=== PATIENT | male | born 1945 | race Caucasian/White ===

== ENCOUNTER 2018-01-11 18:50 | Emergency (ER) | payer SELFPAY ==
[~2018-01-11] VITALS: Ht 180.3 cm; Wt 86.2 kg
[2018-01-11 18:50] VITALS: BP_SYST 159
[2018-01-11 20:07] VITALS: BP_SYST 142
== END 2018-01-11 20:03 ==
LOC: SED 18:50
DX: Z02.89 Encounter for other administrative examinations (principal); Z88.5 Allergy status to narcotic agent; Z86.79 Personal history of other diseases of the circulatory system; Z95.9 Presence of cardiac and vascular implant and graft, unspecified
CPT/HCPCS: 99283